=== PATIENT | male | born 1955 | race Caucasian/White ===

== ENCOUNTER 2019-12-03 18:34 | Emergency (ER) | payer OTHER ==
[~2019-12-03] VITALS: Ht 170.2 cm; Wt 108.4 kg
--- NOTE | 2019-12-03 18:45 | NUR ---
Dr. Crowe at bedside for MSE
[2019-12-03] MEDS ORDERED: DILT-3 PO (18:55)
[2019-12-03] MEDS ORDERED: APIX5TAB4 PO (18:55)
[2019-12-03] MEDS ORDERED: LORAZEPAM 1 MG TABLET ONE (18:56)
[2019-12-03] MEDS ORDERED: LORAZEPAM 0.5 MG TABLET PO ONE (19:00)
--- NOTE | 2019-12-03 19:09 | NUR ---
Report given to juliano ANDERSON
--- NOTE | 2019-12-03 19:10 | NUR ---
Received report from MONICA García pt in bed. AA/O x4. able to speak in complete sentences. follows commands respirations even and unlabored no s/s of cardiovascular distress noted denies dizziness denies changes /GI SR up for safety. Bed locked, lowest position. Instructed pt to call nurse for assistance Monitored accordingly Will continue to monitor pt
[2019-12-03 19:15] LABS: EOSINOPHILS # (AUTO) 0.1 K/uL (0.0-0.7); EOSINOPHILS % (AUTO) 2.6 % (0.0-7.0); HEMATOCRIT 40.6 % (36.7-47.1); MEAN CORPUSCULAR HEMOGLOBIN 31.8 uug (23.8-33.4); MEAN CORPUSCULAR HGB CONC 34 g/dL (32.5-36.3); MEAN CORPUSCULAR VOLUME 92.6 fL (73.0-96.2); MONOCYTES # (AUTO) 0.5 K/uL (2.0-10.0); MONOCYTES % (AUTO) 10.5 % (0.0-11.0); NEUTROPHILS # (AUTO) 3.3 K/uL (1.8-8.9); NEUTROPHILS % (AUTO) 65.9 % (38.5-71.5); PLATELET COUNT (AUTO) 186 K/uL (152-348); RED BLOOD CELL COUNT(AUTO) 4.39 MIL/uL (4.06-5.63)
[2019-12-03 19:26] LABS: CREATININE 0.9 mg/dL (0.6-1.3); POTASSIUM 3.7 mmol/L (3.5-5.1)
[2019-12-03 19:32] LABS: BILIRUBIN,DIRECT 0.2 mg/dL (0.0-0.2); BILIRUBIN,TOTAL 0.6 mg/dL (0.2-1.0)
--- NOTE | 2019-12-03 19:51 | NUR ---
Patient discharged to home in stable condition. Written and verbal after care instructions given. Patient verbalizes understanding of instructions. Stressed follow up or return to ER for worsening s/s. aa/ox4. able to make needs known. follows commands. able to speak in complete sentences respirations even and unlabored no s/s of cardiovascular distress no s/s of distress denies dizziness ambulatory with steady gait all belongings with pt
--- NOTE | 2019-12-03 19:51 | NUR ---
instructed pt not to drive
[2019-12-03 20:35] VITALS: BP 135/82
== END 2019-12-03 19:51 | disposition home or self-care (01) ==
LOC: ER 18:39
DX: R55 Syncope and collapse (principal); R00.0 Tachycardia, unspecified; I44.0 Atrioventricular block, first degree; Z88.8 Allergy status to other drugs, medicaments and biological substances
CPT/HCPCS: 36415; 70030-TC; 83690; 85025; 85730; 93005; A4663

== ENCOUNTER 2023-08-13 15:18 | Emergency (ER) | payer MEDICARE, MEDICAID ==
[~2023-08-13] VITALS: Ht 170.2 cm; Wt 103.4 kg
[~2023-08-13 15:18] MED LIST: APIX5TAB4 PO; DILT-3 PO
[2023-08-13 17:20] LABS: BASOPHILS # (AUTO) 0.1 K/UL (0.0-0.2); BASOPHILS % (AUTO) 2.6 % (0.0-2.0); EOSINOPHILS # (AUTO) 0.1 K/uL (0.0-0.7); EOSINOPHILS % (AUTO) 1.9 % (0.0-7.0); HEMATOCRIT 42.8 % (36.7-47.1); HEMOGLOBIN 14.4 g/dL (12.5-16.3); LYMPHOCYTES # (AUTO) 0.5 K/uL (0.8-4.8); LYMPHOCYTES % (AUTO) 10.9 % (20.5-51.5); MEAN CORPUSCULAR HEMOGLOBIN 30.9 uug (23.8-33.4); MEAN CORPUSCULAR HGB CONC 34 g/dL (32.5-36.3); MONOCYTES # (AUTO) 0.4 K/uL (0.1-1.30); MONOCYTES % (AUTO) 8.4 % (0.0-11.0); NEUTROPHILS # (AUTO) 3.7 K/uL (1.8-8.9); NEUTROPHILS % (AUTO) 76.2 % (38.5-71.5); PLATELET COUNT (AUTO) 182 K/uL (152-348); RED BLOOD CELL COUNT(AUTO) 4.65 MIL/uL (4.06-5.63); RED CELL DISTRIBUTION WIDTH 13.5 % (12.1-16.2); WHITE BLOOD COUNT (AUTO) 4.8 K/uL (3.6-10.2)
[2023-08-13 17:32] LABS: CALCIUM 8.9 mg/dL (8.5-10.1); CARBON DIOXIDE 30 mmol/L (21-32); CHLORIDE 102 mmol/L (98-107); CREATININE 0.7 mg/dL (0.6-1.3); GLUCOSE 91 mg/dL (74-106); POTASSIUM 3.9 mmol/L (3.5-5.1); SODIUM SERUM 137 mmol/L (136-145); UREA NITROGEN, BLOOD 11 mg/dL (7-18)
[2023-08-13 17:45] LABS: ALANINE AMINOTRANSFERASE 28 U/L (16-63); ALBUMIN 3.9 g/dL (3.4-5.0); ALKALINE PHOSPHATASE 73 U/L (50-136); ASPARTATE AMINOTRANSFERASE 16 U/L (15-37); BILIRUBIN,DIRECT 0.2 mg/dL (0.0-0.2); BILIRUBIN,TOTAL 0.9 mg/dL (0.2-1.0); NT-PRO BNP 75 pg/mL (0-125); TOTAL PROTEIN, SERUM 7.3 g/dL (6.4-8.2)
[2023-08-13 18:42] VITALS: BP 154/88; O2SAT 97
== END 2023-08-13 18:43 | disposition home or self-care (01) ==
LOC: ER 15:21
DX: R07.89 Other chest pain (principal); I48.91 Unspecified atrial fibrillation; Z79.899 Other long term (current) drug therapy; Z88.1 Allergy status to other antibiotic agents
CPT/HCPCS: 36415; 70450; 71045; 84484; 85025; 85730; 93005; A4606; A4663